=== PATIENT | female | born 1970 | race Caucasian/White ===

== ENCOUNTER 2023-09-10 07:17 | Day surgery (SDC) | payer OTHER ==
[~2023-09-10] VITALS: Ht 160 cm; Wt 77.1 kg
[2023-09-10] MEDS ORDERED: fentaNYL citrate 0.05 MG/ML VIAL ONE (07:53)
[2023-09-10] MEDS ORDERED: MIDAZOLAM 2 MG/2 ML VIAL ONE (07:54)
[2023-09-10] MEDS: MIDAZOLAM 2 MG/2 ML VIAL IVP ONE (08:33)
[2023-09-10] MEDS: fentaNYL citrate 0.05 MG/ML VIAL IVP ONE (08:34)
[2023-09-10] MEDS: LIDOCAINE 2% 100 MG/5 ML UJET TP ONE (08:52)
== END 2023-09-10 09:55 | disposition home or self-care (01) ==
LOC: MDS 07:17 → MMU 07:20 → MDS 09:55
PROVIDERS: ATTEND Internal Medicine Gastroenterology
DX: Z12.11 Encounter for screening for malignant neoplasm of colon (principal); K21.00 Gastro-esophageal reflux disease with esophagitis, without bleeding; K29.70 Gastritis, unspecified, without bleeding; E78.00 Pure hypercholesterolemia, unspecified; G43.909 Migraine, unspecified, not intractable, without status migrainosus; M19.90 Unspecified osteoarthritis, unspecified site; Z79.899 Other long term (current) drug therapy
CPT/HCPCS: 36415; 43239; 45378; 86677; J2250; J3010